=== PATIENT | male | born 1990 | race Caucasian/White ===

== ENCOUNTER 2019-03-23 17:24 | Emergency (ER) | payer MEDICAID, OTHER ==
--- NOTE | 2019-03-23 17:39 | EDM.PDOC ---
ED HPI GENERAL MEDICAL PROBLEM - General Chief Complaint: General Stated Complaint: LACERATION Time Seen by Provider: 03/23/19 17:25 Source of Information: Reports: Patient History Limitations: Reports: No Limitations - History of Present Illness INITIAL COMMENTS - FREE TEXT/NARRATIVE: This is a 28yo M working at the [employer] who cut his fingertip. He denies any pain but does note some numbness. He denies any loss of motion or other injuries. There is an adjacent small cut of the ring finger. Onset: Sudden Severity: Mild Improves with: Reports: None Worsens with: Reports: None Treatments MANAGER TEST: Reports: Dressing(s) ED ROS GENERAL - Review of Systems Review Of Systems: ROS reveals no pertinent complaints other than HPI. ED EXAM, GENERAL - Physical Exam Exam: See Below Exam Limited By: No Limitations General Appearance: Alert, WD/WN, No Apparent Distress Ears: Normal External Exam Nose: Normal Inspection Throat/Mouth: Normal Inspection Head: Atraumatic, Normocephalic Neck: Normal Inspection Respiratory/Chest: No Respiratory Distress Cardiovascular: Normal Peripheral Pulses, Regular Rate, Rhythm GI/Abdominal: Normal Bowel Sounds Extremities: Other (cut of the middle left finger nail and fingertip 3cm - non displaced) Course - Orders/Labs/Meds Orders: Active Orders 24 hr Category Date Time Status Vaccines to be Administered [RC] PER UNIT ROUTINE Care 03/23/19 17:35 Ordered Diphth,Pertuss(Acell),Tet Vac [Boostrix] Med 03/23/19 17:35 Once 0.5 ml IM .ONCE ONE - Re-Assessments/Exams Free Text/Narrative Re-Assessment/Exam: Left middle finger cleaned and dressed. Departure - Departure Time of Disposition: 18:00 Disposition: Home, Self-Care 01 Condition: Good Clinical Impression: Laceration - Discharge Information - Problem List Review Problem List Initiated/Reviewed/Updated: Yes - My Orders Last 24 Hours: My Active Orders 03/23/19 17:35 Vaccines to be Administered [RC] PER UNIT ROUTINE Diphth,Pertuss(Acell),Tet Vac [Boostrix] 0.5 ml IM .ONCE ONE - Assessment/Plan Last 24 Hours: My Active Orders 03/23/19 17:35 Vaccines to be Administered [RC] PER UNIT ROUTINE Diphth,Pertuss(Acell),Tet Vac [Boostrix] 0.5 ml IM .ONCE ONE Plan: Counseled on care of wound. Discussed Tdap. Counseled on close monitoring of wound care and f/u in clinic or ER for any concerns. Discussed infection and further management. F/u with PCP this week.
[2019-03-23] MEDS: Diphtheria,Pertussis(Acell),Tetanus Vaccine 0.5 ML SDV inactive IM ONE (18:14)
== END 2019-03-23 17:52 | disposition home or self-care (01) ==
LOC: LB.ED 17:24
DX: S61.213A Laceration without foreign body of left middle finger without damage to nail, initial encounter (principal); W27.8XXA Contact with other nonpowered hand tool, initial encounter; Z23 Encounter for immunization; Y99.0 Civilian activity done for income or pay; W31.89XA Contact with other specified machinery, initial encounter
CPT/HCPCS: 90471; 90715; 99282